=== PATIENT | male | born 1935 | race Caucasian/White ===

== ENCOUNTER 2016-11-25 11:57 | Inpatient (IN) | payer OTHER, MEDICARE ==
[~2016-11-25] VITALS: Ht 180.3 cm; Wt 95.3 kg
[~2016-11-25 11:57] MED LIST: CIPROFLOXACIN500 M2 PO
--- NOTE | 2016-11-25 12:10 | ED AMS/SEIZURE/WEAK/DIZZY ---
History of Present Illness General Chief Complaint: General Adult Stated Complaint: UTI, CONFUSSION Source: patient, family, old records Exam Limitations: no limitations Vital Signs & Intake/Output Vital Signs & Intake/Output Vital Signs Date Time Temp Pulse Resp B/P Pulse O2 O2 Flow FiO2 Ox Delivery Rate 11/26 0613 90 18 146/72 97 Room Air 11/25 2226 97.5 78 20 130/70 98 Room Air 11/25 1805 98.0 72 16 140/70 96 Room Air 11/25 1627 97.7 77 15 130/66 97 Room Air Room Air 11/25 1426 96.8 70 18 116/76 96 Room Air 11/25 1224 96 ED Intake and Output 11/26 0000 11/25 1200 Intake Total 2200 Output Total 1150 Balance 1050 Intake, IV 1500 Intake, Oral 700 Output, Urine 1150 Patient 210 lb Weight Allergies Coded Allergies: No Known Allergies (11/25/16) Reconcile Medications Amlodipine Besylate 10 MG TABLET 1 TAB PO DAILY HTN (Reported) Atorvastatin Calcium 80 MG TABLET 1 TAB PO DAILY HPL (Reported) Ciprofloxacin HCl 500 MG TABLET 1 TAB PO BID ?UTI (Reported) Esomeprazole (Nexium) (Unknown Strength) CAPSULE.DR (Unknown Dose) DAILY GI ( Reported) Ezetimibe (Zetia) 10 MG TABLET 1 TAB PO DAILY HPL (Reported) Metoprolol Tartrate 25 MG TABLET 1 TAB PO BID HTN (Reported) Quinapril HCl 10 MG TABLET 1 TAB PO DAILY HTN (Reported) Sertraline HCl 50 MG TABLET 1 TAB PO DAILY MENTAL HEALTH (Reported) Triage Note: TRIAGE: PT TO ER WITH C/C PENIS PAIN, EQUILIBRIUM PROBLEMS, CONSTANT HEADACHE & WEAKNESS. ONSET ?5 DAYS, GRADUAL IN ONSET. FELL X 1 LAST NIGHT. FELT LIGHTHEADED PRIOR TO FALL. STILL FEELS LIGHTHEADED. -LOC. DENIES INJURY FROM FALL. Triage Nurses Notes Reviewed? yes Onset: Gradual Duration: day(s): (5), constant Timing: recent history Injury Environment: home Severity: mild, moderate Severity Numbers: 7 No Modifying Factors: none Associated Symptoms: denies HPI: 81 year old male history of hypertension high cholesterol presents emergency room complaining of a several week history of feeling lightheaded and off balance. He states that 6 weeks ago he had his metoprolol dose decreased to 50 mg which seemed to help however the symptoms were still present mildly. Patient states for the past 5 days he has had urinary urgency frequency however with decreased urinary stream. He denies history of similar episodes in the past. The patient's bought [id number] medication and attempt to help with no relief. He has an appointment scheduled to see a urologist Dr. birmingham in [place] tomorrow. The patient had a prescription for Cipro called in 2 DAYS when He began at that time. According to his the patient has been more confused and unsteady on his feet however since the symptoms began. The patient admits to falling yesterday while getting out of bed. There is no head strike there is no loss of consciousness he denies headache patient's symptoms chest pain" abdominal pain shortness of breath cough fever or chill. There's been no change in his appetite (BECKY MOSES) Past History Travel History Traveled to [place] past 21 day No Medical History Any Pertinent Medical History? 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 No (BECKY MOSES) Review of Systems Review of Systems Constitutional: Reports: see HPI. All Other Systems: Reviewed and Negative Comments Review of systems: See HPI, All other systems negative. Constitutional, no chills fever or weight loss HEENT: No visual changes no sore throat no congestion Cardiovascular: No chest pain ,palpitation Skin, no jaundice no rashes Respiratory: No dyspnea cough sputum or hemoptysis GI: No nausea no vomiting : No dysuria No hematuria Muscle skeletal: no back pain, no neck pain, Neurologic: No numbness confusion Psych: No stress Heme/endocrine: No bruising no bleeding no polyuria or polydipsia Immunology: No splenectomy (BECKY MOSES) Physical Exam Physical Exam General Appearance: well developed/nourished, alert, awake Comments: Well-developed well-nourished person in no acute distress HEENT: Normal EENT exam; PERRL, EOMI, no nystagmus. HEAD is atraumatic. moist mucous membranes. Neck: Supple, normal range of motion Back: Nontender, no CVA tenderness. Full range of motion Cardiovascular: Regular rate and rhythms no murmurs rubs or gallops Respiratory: No respiratory distress. Patient speaking in full complete sentences. Breath sounds clear to auscultation bilaterally: NO W/R/R Abdomen: Soft, nontender nondistended, no appreciable organomegaly. Normal bowel sounds. No rebound/guarding, Extremity: No edema, full range of motion of extremities, 5 out of 5 strength noted to bilateral upper and lower extremities Neuro: Alert oriented x3, motor sensory normal, cranial nerves II through XII grossly intact. There were no obvious focal neurologic abnormalities. Skin: No appreciable rash on exposed skin, skin is warm and dry. Psych: Mood and affect is normal, memory and judgment is normal. Core Measures ACS in differential dx? Yes CVA/TIA Diagnosis: No Severe Sepsis Present: No Septic Shock Present: No (KRAIG PRADO,BECKY) Progress Differential Diagnosis: arrythmia, anemia, benign positional vertigo, CVA/stroke , dehydration, electrolyte imbalance, GI bleed, hypoglycemia, intracranial Hem., intracranial mass/tumor, labrynthitis, subarachnoid Hem., UTI/pyelo, vertebrobasilar insuff Plan of Care: Orders Procedure Date/time Status Heart Healthy Diet 11/26 B Active Change service to 11/26 0934 Active BASIC ELECTROLYTES PLUS BUN&CR 11/26 0600 Complete PT Evaluate & Treat 11/26 UNK Active Therapeutic Activities 11/26 UNK Complete PT EVAL LOW COMPLEX 20 MIN 11/26 UNK Complete Gait Training 11/26 UNK Complete MISTAKE 11/26 UNK Active MISSING MEDICATION FORM 11/26 UNK Active Regular Diet 11/25 D Complete Vital Signs 11/25 1815 Active Teach/Educate 11/25 181 Active Pain Treatment and Response 11/25 181 Active Nutritional Intake, Monitor 11/25 181 Active Isolation 11/25 181 Active Intake & Output 11/25 181 Active Patient Care Conference 11/25 181 Active Activity/Ambulation 11/25 181 Active Pathway - chart 11/25 1651 Active Admit to inpatient 11/25 1529 Active Vital Signs 11/25 1529 Active Code Status 11/25 1529 Active Patient Data 11/25 1525 Active BLOOD CULTURE 11/25 1512 Active Intake & Output 11/25 1326 Active EKG 11/25 1250 Active MISTAKE 11/25 1247 Active TROPONIN LEVEL 11/25 1237 Complete COMPREHENSIVE METABOLIC PANEL 11/25 1237 Complete CBC WITHOUT DIFFERENTIAL 11/25 1237 Complete House Staff 11/25 UNK Active VTE Mechanical Prophylaxis 11/25 UNK Active Current Medications Sig/Karuna Start time Last Medication Dose Stop Time Status Admin Ceftriaxone Sodium 1,000 MG DAILY@1600 11/26 1600 AC (Rocephin) Amlodipine Besylate 10 MG DAILY 11/26 1000 AC (Norvasc) Metoprolol Tartrate 25 MG BID 11/25 2200 CAN (Lopressor) Laboratory Tests 11/26/16 0620: Anion Gap 8, Estimated GFR > 60, BUN/Creatinine Ratio 15.6 11/25/16 1412: Urinalysis LIGHT H, Urine Color YEL, Urine Clarity HAZY H, Urine pH 6.0, Ur Specific [place] 1.010, Urine Protein NEG, Urine Ketones NEG, Urine Nitrite NEG, Urine Bilirubin NEG, Urine Urobilinogen 0.2, Ur Leukocyte Esterase MOD H, Ur Microscopic SEDIMENT EXAMINED, Urine RBC 1-3, Urine WBC 25-50 H, Ur Epithelial Cells FEW, Urine Bacteria FEW H, Granular Casts 1-3 H, Urine Mucus FEW, Urine Hemoglobin TRACE-INTACT H, Urine Glucose NEG 11/25/16 1320: Anion Gap 12, Estimated GFR 49 L, BUN/Creatinine Ratio 16.4, Glucose 114 H, Calcium 9.0, Total Bilirubin 1.0, AST 30, ALT 32, Alkaline Phosphatase 59, Troponin I < 0.01, Total Protein 6.7, Albumin 3.6, Globulin 3.1, Albumin/ Globulin Ratio 1.2, CBC w Diff NO MAN DIFF REQ, RBC 5.26, MCV 87.1, MCH 28.9, RDW 12.8, MPV 9.4, Gran % 62.9, Lymphocytes % 18.9 L, Monocytes % 15.4 H, Eosinophils % 2.0, Basophils % 0.8, Absolute Granulocytes 6.2, Absolute Lymphocytes 1.9, Absolute Monocytes 1.5 H, Absolute Eosinophils 0.2, Absolute Basophils 0.1, PUBS MCHC 33.2 Microbiology 11/25 1537 BLOOD: Blood Culture - RES 11/25 1528 BLOOD: Blood Culture - RES 11/25 1412 URINE ROUT: Urine Culture - RES Labs ordered old records reviewed orthostatics negative case discussed with Dr. beasley Discussed with the patient his family all his lab results CAT scan findings given recent fall change in mental status urinary tract infection probably premature distractedly medically harmful he's been on Cipro for the past 2 days without improvement they feel comfortable with this plan and admission CASE D/W DR DALEY RENAL US ORDERED FOR TOMORROW MONRNING PER DR DALEY US NOT AVAILABLE AT THIS TIME (KRAIG PRADO,BECKY) Diagnostic Imaging: Viewed by Me: CT Scan. Discussed w/RAD: CT Scan. Radiology Impression: PATIENT: YING BEAUCHAMP PRESENT AGE: 81 PATIENT ACCOUNT NO: [id number] : 35 LOCATION: [facility] ORDERING PHYSICIAN: BECKY PRADO SERVICE DATE: 11/25/16 EXAM TYPE: CAT - CT HEAD WO IV CONTRAST EXAMINATION: CT HEAD WITHOUT CONTRAST CLINICAL INFORMATION: Confusion, unsteady gait and urinary frequency. COMPARISON: None. TECHNIQUE: Contiguous axial imaging was performed from the skull base to vertex without intravenous administration of contrast. DLP: 600.71 mGy-cm FINDINGS: There is no evidence of acute intracranial hemorrhage or territorial infarction. No abnormal mass effect or midline shift is seen. [place] to white matter differentiation is well preserved. No extra-axial fluid collections are identified. The ventricles are normal in size. There is mild generalized sulcal widening. There is mild patchy low attenuation in the periventricular white matter spaces. The osseous structures and soft tissues are normal. Anterior dermal calcifications are incidentally noted, which can be correlated clinically. The mastoid air cells and visualized portions of the paranasal sinuses are well aerated. IMPRESSION: 1. No acute intracranial pathology. 2. There is mild cortical atrophy, commensurate with advanced age. 3. There is mild patchy low attenuation change in the periventricular white matter spaces, commonly associated with chronic microangiopathy. DICTATED BY: AKOSUA AMARAL MD DATE/TIME DICTATED:11/25/161329 DIRECTOR OF EMPLOYER SERVICES:HALLIE DATE/TIME TRANSCRIBED:11/25/161329 CONFIDENTIAL, DO NOT COPY WITHOUT APPROPRIATE AUTHORIZATION. <Electronically signed in Other Vendor System> SIGNED BY: AKOSUA AMARAL MD 03/12/17 1337 Initial ED EKG: normal sinus at 70, first-degree AV block PAC, no acute ST segment changes Rhythm Strip: normal sinus rhythm (BECKY OMSES) Departure Departure Time of Disposition: 1512 Disposition: STILL A PATIENT Condition: Stable Clinical Impression Primary Impression: UTI (urinary tract infection) Secondary Impressions: Unsteady gait, Weakness Referrals: VARGAS LOPEZ,SADE Villagran (PCP/Family) Departure Forms: Customer Survey General Discharge Information Admission Note Spoke With: EDI LOPEZ,ZORAIDA Documentation of Exam: Documentation of any treatments & extenuating circumstances including Concerns Regarding Discharge (functional status, medication knowledge or non-compliance, living conditions, etc.) that warrant an admission rather than observation: Patient not at baseline require IV antibiotics trend labs and cultures, he is a fall risk given weakness and recent fall premature discharge would BE medically harmful (BECKY MOSES) PA/BLANKET WINDER OPERATOR Co-Sign Statement Statement: ED Attending supervision documentation- [X] I saw and evaluated the patient. I have also reviewed all the pertinent lab results and diagnostic results. I agree with the findings and the plan of care as documented in the PA's/BLANKET WINDER OPERATOR's documentation. [X] I have reviewed the ED Record and agree with the PA's/BLANKET WINDER OPERATOR's documentation. [] Additions or exceptions (if any) to the PAs/BLANKET WINDER OPERATOR's note and plan are summarized below: [] (CHUN LOPEZ,MARCIO)
[2016-11-25] MEDS ORDERED: QUINAPRIL HCL10 M1 PO (12:20)
[2016-11-25] MEDS ORDERED: ATORVASTATIN CA80 M1 PO (12:20)
[2016-11-25] MEDS ORDERED: METOPROLOL TART25 M1 PO (12:20)
[2016-11-25] MEDS ORDERED: SERTRALINE HCL50 MG PO (12:20)
[2016-11-25] MEDS ORDERED: NEXIUM20 M1 PO (12:21)
[2016-11-25] MEDS ORDERED: AMLODIPINE BESY10 M1 PO (12:21)
[2016-11-25] MEDS ORDERED: ZETIA10 M1 PO (12:21)
[2016-11-25 13:30] LABS: ABSOLUTE BASOPHIL COUNT 0.1 /CUMM (0.0-0.2); ABSOLUTE EOSINOPHIL COUNT 0.2 /CUMM (0.0-0.7); ABSOLUTE GRANULOCYTE CT 6.2 /CUMM (1.4-6.5); ABSOLUTE LYMPH COUNT 1.9 /CUMM (1.2-3.4); ABSOLUTE MONOCYTE COUNT 1.5 /CUMM (0.10-0.60); BASOPHIL % 0.8 % (0.0-2.0); GRANULOCYTE % 62.9 % (42.2-75.2); HEMATOCRIT 45.9 % (42-52); MEAN CORPUSCULAR HGB 28.9 PG (27.0-31.0); MEAN CORPUSCULAR HGB CONC 33.2 G/DL (33.0-37.0); MEAN CORPUSCULAR VOLUME 87.1 FL (80.0-94.0); MEAN PLATELET VOLUME 9.4 FL (7.4-10.4); PLATELET COUNT 141 /CUMM (130-400); RBC DISTRIBUTION WIDTH 12.8 % (11.5-14.5); RED BLOOD CELL CT 5.26 /CUMM (4.70-6.10); WHITE BLOOD CELL COUNT 9.8 /CUMM (4.8-10.8)
--- NOTE | 2016-11-25 13:37 | CT SCAN REPORT ---
EXAMINATION: CT HEAD WITHOUT CONTRAST CLINICAL INFORMATION: Confusion, unsteady gait and urinary frequency. COMPARISON: None. TECHNIQUE: Contiguous axial imaging was performed from the skull base to vertex without intravenous administration of contrast. DLP: 600.71 mGy-cm FINDINGS: There is no evidence of acute intracranial hemorrhage or territorial infarction. No abnormal mass effect or midline shift is seen. [place] to white matter differentiation is well preserved. No extra-axial fluid collections are identified. The ventricles are normal in size. There is mild generalized sulcal widening. There is mild patchy low attenuation in the periventricular white matter spaces. The osseous structures and soft tissues are normal. Anterior dermal calcifications are incidentally noted, which can be correlated clinically. The mastoid air cells and visualized portions of the paranasal sinuses are well aerated. IMPRESSION: 1. No acute intracranial pathology. 2. There is mild cortical atrophy, commensurate with advanced age. 3. There is mild patchy low attenuation change in the periventricular white matter spaces, commonly associated with chronic microangiopathy.
[2016-11-25 18:05] VITALS: BP 140/70
--- NOTE | 2016-11-25 18:20 | History & Physical ---
See Addendum WILLIAM LOPEZ,DUKE 11/25/16 7881: General Information and HPI MD Statement: I have seen and personally examined YING BEAUCHAMP and documented this H&P. The patient is a 81 year old M who presented with a patient stated chief complaint of [increased lightheadedness, confusion]. Source of Information: patient, EMS Exam Limitations: no limitations History of Present Illness: Patient is a 81 YO M with PMH significant for HTN, HLD, CABG - 3 vessel (follows ), Acid reflux, Basal cell carcinoma came to the ER secondary to increased weakness, confusion and lethargy after having a UTI. Patient had lightheadedness since around a year on and off for which his metoprolol 37.5BID is changed to 25mg BID recently. After this he felt symptomatically better. He follows (urologist) for regular testosterone injections and PSA level checks. For the past 5days he had incrased urinary frequency, urgency, dysuria, decrased stream, fever, chills for which he made a call to office. He was started on Ciprofloxacin for presumed UTI. His symptoms started to improve, however he had increased urination, dehydration, frequency resulting in increased confusion, weakness. He came to ER for further evaluation. He had a fall yesterday which was uneventful, without any obvious injuries/head trauma. Patient never had UTI in the past, denies any history of prostate problems in the past denies any nausea, vomiting, diarrhea, bowel abnormalities. No blood in stools/ urine. started to notice orange urine after starting azel OTC. Allergies/Medications Allergies: Coded Allergies: No Known Allergies (11/25/16) Home Med list Amlodipine Besylate 10 MG TABLET 1 TAB PO DAILY HTN (Reported) Atorvastatin Calcium 80 MG TABLET 1 TAB PO DAILY HPL (Reported) Ciprofloxacin HCl 500 MG TABLET 1 TAB PO BID ?UTI (Reported) Esomeprazole (Nexium) (Unknown Strength) CAPSULE. (Unknown Dose) DAILY GI ( Reported) Ezetimibe (Zetia) 10 MG TABLET 1 TAB PO DAILY HPL (Reported) Metoprolol Tartrate 25 MG TABLET 1 TAB PO BID HTN (Reported) Quinapril HCl 10 MG TABLET 1 TAB PO DAILY HTN (Reported) Sertraline HCl 50 MG TABLET 1 TAB PO DAILY MENTAL HEALTH (Reported) Compliance With Home Meds: GOOD Past History Travel History Traveled to [place] past 21 day No Medical History Neurological: NONE EENT: NONE Cardiovascular: hypertension, hyperlipidemia, CABG - 3 vessel Respiratory: NONE Gastrointestinal: ACID REFLUX Hepatic: NONE Renal: NONE Musculoskeletal: NONE Psychiatric: NONE Endocrine: NONE Blood Disorders: NONE Cancer(s): NONE 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 Home Who Do You Live With? spouse Services at Home: None Smoking Status: Former Smoker ETOH Use: occasional use Illicit Drug Use: denies illicit drug use Living Will? yes Functional Ability ADLs Independent: dressing, eating, toileting, bathing. Ambulation: independent IADLs Independent: shopping, housework, finances, food prep, telephone, transportation , medication admin. Review of Systems Review of Systems Constitutional: Reports: see HPI. EENTM: Reports: see HPI. Cardiovascular: Reports: see HPI. Genitourinary: Reports: discharge, frequency, hesitation, urgency. Comments ROS negative except the above. Exam & Diagnostic Data Last 24 Hrs of Vital Signs/I&O Vital Signs Date Time Temp Pulse Resp B/P Pulse O2 O2 Flow FiO2 Ox Delivery Rate 11/25 1627 97.7 77 15 130/66 97 Room Air Room Air 11/25 1426 96.8 70 18 116/76 96 Room Air 11/25 1224 96 11/25 1204 96.6 74 20 128/78 96 Room Air Intake & Output 11/25 1600 11/25 0800 11/25 0000 Intake Total 1000 Output Total Balance 1000 Intake, IV 1000 Intake, Oral 0 Patient 95.254 kg Weight Physical Exam General Appearance Alert, Oriented X3, Cooperative Skin No Rashes, No Breakdown HEENT Atraumatic, PERRLA, EOMI Neck Supple Cardiovascular Regular Rate, Normal S1, Normal S2, No Murmurs Lungs Clear to Auscultation, Normal Air Movement Abdomen Normal Bowel Sounds, Soft, No Tenderness Neurological Normal Speech, Strength at 5/5 X4 Ext, Normal Tone, Sensation Intact Extremities No Clubbing, No Cyanosis Last 24 Hrs of Labs/Wes: Laboratory Tests 11/25/16 1412: Urinalysis LIGHT H, Urine Color YEL, Urine Clarity HAZY H, Urine pH 6.0, Ur Specific [place] 1.010, Urine Protein NEG, Urine Ketones NEG, Urine Nitrite NEG, Urine Bilirubin NEG, Urine Urobilinogen 0.2, Ur Leukocyte Esterase MOD H, Ur Microscopic SEDIMENT EXAMINED, Urine RBC 1-3, Urine WBC 25-50 H, Ur Epithelial Cells FEW, Urine Bacteria FEW H, Granular Casts 1-3 H, Urine Mucus FEW, Urine Hemoglobin TRACE-INTACT H, Urine Glucose NEG 11/25/16 1320: Anion Gap 12, Estimated GFR 49 L, BUN/Creatinine Ratio 16.4, Glucose 114 H, Calcium 9.0, Total Bilirubin 1.0, AST 30, ALT 32, Alkaline Phosphatase 59, Troponin I < 0.01, Total Protein 6.7, Albumin 3.6, Globulin 3.1, Albumin/ Globulin Ratio 1.2, CBC w Diff NO MAN DIFF REQ, RBC 5.26, MCV 87.1, MCH 28.9, RDW 12.8, MPV 9.4, Gran % 62.9, Lymphocytes % 18.9 L, Monocytes % 15.4 H, Eosinophils % 2.0, Basophils % 0.8, Absolute Granulocytes 6.2, Absolute Lymphocytes 1.9, Absolute Monocytes 1.5 H, Absolute Eosinophils 0.2, Absolute Basophils 0.1, PUBS MCHC 33.2 Microbiology 11/25 1537 BLOOD: Blood Culture - RECD 11/25 1528 BLOOD: Blood Culture - RECD 11/25 1412 URINE ROUT: Urine Culture - RECD Assessment/Plan Assessment: Patient is a 81 YO M with PMH significant for HTN, HLD, CABG - 3 vessel (follows ), Acid reflux, Basal cell carcinoma came to the ER secondary to increased weakness, confusion and lethargy after having a presumed UTI. He was scheduled for any appointement with tomorrow. ER Course VS Afebrile, on room air Significant labs Cr. 1.4 with normal white count UA is hazy, LE positive, white count 25-50, few bacteria, granular casts. Plan Admitted to general medicine floor UTI leading to dehydration and kidney injury * started on IV ceftriaxone 1gm daily with discontinuation of cipro for now * f/u urine and blood culture * usg kidney to rule out post renal causes. * Gentle hydration with IVF * Rectal examination reveals prostate enalrgement FARAZ * Cr 1.4 * gentle hydration with IVF * repeat BEP daily Orthostatic hypotension * Increased urination and increased abdominal pressure leading to increased lightheadedness * orthostatic vitals History of hypertension * amlodipine 10mg and metoprolol 25mg BID at home Hyperlipidemia * on atorvaststin 80mg & ezetimibe 10mg at home- we will continue that History of Depression * on sertraline 50mg at home DVT prophylaxis * SC heparin Code status * Full Code As Ranked By This Provider Problem List: 1. UTI (urinary tract infection) 2. Unsteady gait 3. Weakness Core Measures/Miscellaneous Acute Coronary Syndrome ACS Diagnosis: No Cerebrovascular Accident CVA/TIA Diagnosis: No Congestive Heart Failure CHF Diagnosis: No Venous Thromboembolism VTE Risk Factors: Immobility, paresis No Mech VTE prophylaxis d/t: No contraindications No VTE Pharm Prophylaxis d/t: No contraindications VTE Diagnosis: No VTE Type: NONE VTE Confirmed by (Test): NONE Severe Sepsis Severe Sepsis Present: No Septic Shock Septic Shock Present: No Miscellaneous Documentation Attending Case Discussed With: EDI LOPEZ,[facility] Primary Care Physician: SADE KAYE MD Patient sees these Specialists Level of Patient Care: General Medicine MERRITT INTERIANO MD 11/25/162022: Resident Review Statement Resident Statement: examined this patient, discussed with internal revenue agent, agreed with internal revenue agent, discussed with family, reviewed EMR data (avail) Other Findings: 81 YO M with PMH of CAD S/P CABG, low testosterone, basal cell carcinoma, HTN, HLD who presents with symptoms of urinary urgency, frequency, penile pain, dysuria x 5 days and profound weakness and lightheadedness x 1 year which improved with decrease in the dose of his PO metoprolol from 75mg daily to 50mg daily. No prior history of urinay complaints, no hx of BPH. he sees a urologist for testosterone shots and got a MOH's surgey for BCC on his rt forehead. Reports chills and mailase but denies any N/V/D, fever or abd/pelvic pain. Started Po ciprofloxacin 2 days ago prescribed by his PCP's office without much improvement. Also used OTC Azo without relief either. Deneies any history of renal disease. Pertinent Exam; Abd. mildly distended but not tender, Mild-moderately enlarged prostate, guaic neg Ass Urinary Tract Infection FARAZ Plan Admit to GM Urine cx and Blood cx x 2 Start IV ceftriaxone 1g daily Obtain Ultrasound of the kidney, ureter and bladder to r/o obstruction/ hydronephrosis/mass Tylenol for pain IVF NS for rehydration Resume important home meds Obtain records and labs from urologist Repeat labs in am SC heparin for DVT ppx
--- NOTE | 2016-11-25 18:26 | Admission Certification ---
Admission Certification Certification Statement - As attending physician, I certify that at the time of - admission, based on clinical presentation, severity of - symptoms, need for further diagnostic testing and - therapeutic interventions, and risk of adverse outcomes - without in-hospital treatment, in my clinical assessment, - this patient requires an acute hospital stay for a minimum - of two nights or longer. I have also considered psychsocial - factors such as support system, advanced age, financial - issues, cognitive issues, and failed out-patient treatments, - past re-admission history, safety of patient, and lack of - compliance as applicable. Specific rationale supporting this admission is: UTI, failed outpatient therapy
--- NOTE | 2016-11-25 18:31 | PN- Att Addend ---
Attending Addendum Attending Brief Note Patient seen and examined. Plan of care discussed with the medical team and the patient. Available lab work and radiology test reports were reviewed. This is a 81 Elderly male with history of hypertension hyperlipidemia CAD and CABG presents with about 1 week history of dysuria without any fever or chills who has human suggestive of UTI. Patient was recently started on Cipro on Saturday and has taken 5 pills so far without much relief patient has been feeling weak and somewhat confused as per family. Needs workup for stone or obstruction or BPH. Patient apparently sees his urologist for test to steroid shots. His does not recall any issues with his prostate or kidney disease or kidney stones. Please see resident note for past history allergies medication family history social history. Vital Signs Date Time Temp Pulse Resp B/P Pulse O2 O2 Flow FiO2 Ox Delivery Rate 11/25 1627 97.7 77 15 130/66 97 Room Air Room Air 11/25 1426 96.8 70 18 116/76 96 Room Air 11/25 1224 96 11/25 1204 96.6 74 20 128/78 96 Room Air Intake & Output 11/25 1600 11/25 0800 11/25 0000 Intake Total 1000 Output Total Balance 1000 Intake, IV 1000 Intake, Oral 0 Patient 210 lb Weight Exam: General: Patient awake alert oriented without any distress CVS: S1 plus S2 without any murmur or gallops Chest: Few scattered crepitation without any wheeze. There is no respiratory distress. Abdomen: Soft nontender, bowel sound present, no guarding or rebound; ? Bladder distention GEODETIC SURVEYOR TECHNOLOGIST: Awake alert oriented without any focal neuro deficit and follows command appropriately Extremities: No edema; no clubbing or cyanosis noted Laboratory Tests 11/25 11/25 1412 1320 Chemistry Sodium (137 - 145 mmol/L) 139 Potassium (3.5 - 5.1 mmol/L) 3.9 Chloride (98 - 107 mmol/L) 100 Carbon Dioxide (22 - 30 mmol/L) 27 Anion Gap (5 - 16) 12 BUN (9 - 20 mg/dL) 23 H Creatinine (0.7 - 1.2 mg/dL) 1.4 H Estimated GFR (>60 ml/min) 49 L BUN/Creatinine Ratio (7 - 25 %) 16.4 Glucose (65 - 99 mg/dL) 114 H Calcium (8.4 - 10.2 mg/dL) 9.0 Total Bilirubin (0.2 - 1.3 mg/dL) 1.0 AST (17 - 59 U/L) 30 ALT (21 - 72 U/L) 32 Alkaline Phosphatase (< 127 U/L) 59 Troponin I (<0.11 ng/ml) < 0.01 Total Protein (6.3 - 8.2 g/dL) 6.7 Albumin (3.5 - 5.0 g/dL) 3.6 Globulin (1.9 - 4.2 gm/dL) 3.1 Albumin/Globulin Ratio (1.1 - 2.2 %) 1.2 Hematology CBC w Diff NO MAN DIFF REQ WBC (4.8 - 10.8 /CUMM) 9.8 RBC (4.70 - 6.10 /CUMM) 5.26 Hgb (14.0 - 18.0 G/DL) 15.2 Hct (42 - 52 %) 45.9 MCV (80.0 - 94.0 FL) 87.1 MCH (27.0 - 31.0 PG) 28.9 RDW (11.5 - 14.5 %) 12.8 Plt Count (130 - 400 /CUMM) 141 MPV (7.4 - 10.4 FL) 9.4 Gran % (42.2 - 75.2 %) 62.9 Lymphocytes % (20.5 - 51.1 %) 18.9 L Monocytes % (1.7 - 9.3 %) 15.4 H Eosinophils % (0 - 5 %) 2.0 Basophils % (0.0 - 2.0 %) 0.8 Absolute Granulocytes (1.4 - 6.5 /CUMM) 6.2 Absolute Lymphocytes (1.2 - 3.4 /CUMM) 1.9 Absolute Monocytes (0.10 - 0.60 /CUMM) 1.5 H Absolute Eosinophils (0.0 - 0.7 /CUMM) 0.2 Absolute Basophils (0.0 - 0.2 /CUMM) 0.1 PUBS MCHC (33.0 - 37.0 G/DL) 33.2 Urines Urinalysis LIGHT H Urine Color (YEL,AMB,STR) YEL Urine Clarity (CLEAR) HAZY H Urine pH (5.0 - 8.0) 6.0 Ur Specific [place] (1.001 - 1.035) 1.010 Urine Protein (NEG,<30 MG/DL) NEG Urine Ketones (NEG) NEG Urine Nitrite (NEG) NEG Urine Bilirubin (NEG) NEG Urine Urobilinogen (0.1 - 1.0 EU/dl) 0.2 Ur Leukocyte Esterase (NEG) MOD H Ur Microscopic SEDIMENT EXAMINED Urine RBC (0 - 5 /HPF) 1-3 Urine WBC (0 - 2 /HPF) 25-50 H Ur Epithelial Cells (NONE,FEW) FEW Urine Bacteria (NEG/NONE) FEW H Granular Casts (NONE /LPF) 1-3 H Urine Mucus (FEW,NONE) FEW Urine Hemoglobin (NEG) TRACE-INTACT H Urine Glucose (N MG/DL) NEG Microbiology Date/Time Procedure - Status Source Growth 11/25 1537 Blood Culture - RECD BLOOD 11/25 1528 Blood Culture - RECD BLOOD 11/25 1412 Urine Culture - RECD URINE ROUT Assessment * UTI without signs of sepsis * History of hypertension * Hyperlipidemia * Renal failure unclear whether this is acute or chronic * Hyperglycemia Plan * Start ceftriaxone 1 g daily * Follow-up urine culture which showed he has been sent * Obtain ultrasound of kidney ureter bladder to rule out any obstruction or stones or foreign bodies * Continue home medications except for Cipro
[2016-11-25 22:26] VITALS: BP 130/70
--- NOTE | 2016-11-26 06:01 | PN- Housestaff ---
WILLIAM LOPEZ,[place] 11/26/16 0600: Subjective Follow-up For: UTI Orthostatic hypotension BPH Subjective: I saw and examined the patient today morning He is doing much better, denies any lightheadedness so far, didnt try to walk. Still had urgency, frequency dysuria. Denies any decreased stream as of now. Review of Systems Constitutional: Reports: see HPI, malaise, weakness. EENTM: Reports: see HPI. Comments: ROS negative except the above. Objective Last 24 Hrs of Vital Signs/I&O Vital Signs Date Time Temp Pulse Resp B/P Pulse O2 O2 Flow FiO2 Ox Delivery Rate 11/25 2226 97.5 78 20 130/70 98 Room Air 11/25 1805 98.0 72 16 140/70 96 Room Air 11/25 1627 97.7 77 15 130/66 97 Room Air Room Air 11/25 1426 96.8 70 18 116/76 96 Room Air 11/25 1224 96 11/25 1204 96.6 74 20 128/78 96 Room Air Intake & Output 11/26 0800 11/26 0000 11/25 1600 Intake Total 1200 1000 Output Total 1150 Balance 50 1000 Intake, IV 500 1000 Intake, Oral 700 0 Output, Urine 1150 Patient 95.254 kg 95.254 kg Weight Physical Exam General Appearance: Alert, Oriented X3, Cooperative Skin: No Rashes, No Breakdown HEENT: Atraumatic, PERRLA, EOMI Neck: Supple, No JVD Cardiovascular: Regular Rate, Normal S1, Normal S2, No Murmurs Lungs: Clear to Auscultation, Normal Air Movement Abdomen: Normal Bowel Sounds, Soft, No Tenderness Neurological: Strength at 5/5 X4 Ext, Normal Tone, Sensation Intact, Cranial Nerves 3-12 NL Extremities: No Clubbing, No Cyanosis Vascular: Normal Pulses, Pulses Symmetrical Current Medications: Current Medications Sig/Karuna Start time Last Medication Dose Route Stop Time Status Admin Acetaminophen 650 MG Q6P PRN 11/25 1700 AC 11/26 PO 0558 Amlodipine Besylate 10 MG DAILY 11/26 1000 AC PO Atorvastatin Calcium 80 MG DAILY 11/26 1000 AC PO Ceftriaxone Sodium 1,000 MG DAILY@1600 11/26 1600 AC IV Ceftriaxone Sodium 0 .STK-MED ONE 11/25 1551 DC .ROUTE Ceftriaxone Sodium 1,000 MG ONCE ONE 03/12 1515 DC 11/25 IV 11/25 1516 1607 Ezetimibe 10 MG DAILY 11/26 1000 AC PO Heparin Sodium 0 .STK-MED ONE 11/25 1734 DC (Porcine) .ROUTE Heparin Sodium 5,000 UNIT Q8 11/25 1650 AC 11/26 (Porcine) SC 0552 Metoprolol Tartrate 25 MG BID 11/25 2200 CAN PO Omeprazole 20 MG DAILY AC 11/26 0700 AC 11/26 PO 0552 Patient Medication 1 UNIT ONE NR 11/25 1815 DC Teaching ED 11/25 1830 Patient Medication 1 UNIT ONE NR 11/25 1815 DC Teaching ED 11/25 1830 Patient Medication 1 UNIT ONE NR 11/25 1815 DC Teaching ED 11/25 1830 Patient Medication 1 UNIT ONE NR 11/25 1745 DC Teaching ED 11/25 1800 Ramelteon 8 MG AT BEDTIME 11/25 2200 AC 11/25 PO 2136 Sertraline HCl 50 MG DAILY 11/26 1000 AC PO Sodium Chloride 1,000 ML Q10H 11/25 1800 AC 11/26 IV 0600 Sodium Chloride 1,000 ML BOLUS ONE 11/25 1415 DC 11/25 IV 11/25 1514 1414 Sodium Chloride 1,000 ML BOLUS ONE 11/25 1300 DC 11/25 IV 11/25 1359 1324 Last 24 Hrs of Lab/Wes Results Last 24 Hrs of Labs/Mics: Laboratory Tests 11/26/16 0620: Anion Gap 8, Estimated GFR > 60, BUN/Creatinine Ratio 15.6 Lines/Diet/Fluids Lines: peripheral lines Assessment/Plan Assessment: Patient is a 81 YO M with PMH significant for HTN, HLD, CABG - 3 vessel (follows ), Acid reflux, Basal cell carcinoma came to the ER secondary to increased weakness, confusion and lethargy after having a presumed UTI. He was scheduled for any appointement with tomorrow. ER Course VS Afebrile, on room air Significant labs Cr. 1.4 with normal white count UA is hazy, LE positive, white count 25-50, few bacteria, granular casts. Plan Admitted to general medicine floor UTI leading to dehydration and kidney injury * started on IV ceftriaxone 1gm daily with discontinuation of cipro for now, will convert to oral antibiotics tomorrow. * f/u urine and blood culture * usg kidney shows a post voidal residual volume of 532 mL and prostate volume of 32ml. * Started on Tamsulosin 0.4mg daily, need to follow up with his urologist. * Rectal examination reveals prostate enalrgement FARAZ * Cr 1.4 at admission - back to baseline with fluids. Orthostatic hypotension * Increased urination and increased abdominal pressure leading to increased lightheadedness * orthostatic vitals positive * Hydrating, will repeat orthostatics tomorrow. History of hypertension * amlodipine 10mg and metoprolol 25mg BID at home Hyperlipidemia * on atorvaststin 80mg & ezetimibe 10mg at home- we will continue that History of Depression * on sertraline 50mg at home DVT prophylaxis * SC heparin Code status * Full Code Problem List: 1. UTI (urinary tract infection) 2. Weakness Pain Ratin Pain Location: n/a Pain Goal: Pain 4 or less Pain Plan: tylenol PRN Tomorrow's Labs & Rationales: NONE KENYETTA DICKEY MD 11/26/16 1448: Attending MD Review Statement Attending Statement Attending MD Statement: examined this patient, discuss w/resident/PA/CHOIR LEADER, agreed w/resident/PA/CHOIR LEADER, discussed with family, reviewed EMR data (avail), discussed with nursing, discussed with case mgmt, reviewed images, amended to note Attending Assessment/Plan: Patient seen and examined, feeling overall slightly better. Patient is a 81- year-old male who was admitted with the UTI failing outpatient treatment. Vital Signs Date Time Temp Pulse Resp B/P Pulse O2 O2 Flow FiO2 Ox Delivery Rate 11/26 1426 98.2 72 20 130/74 95 Room Air 11/26 0613 90 18 146/72 97 Room Air 11/25 2226 97.5 78 20 130/70 98 Room Air 11/25 1805 98.0 72 16 140/70 96 Room Air 11/25 1627 97.7 77 15 130/66 97 Room Air Room Air on exam; aox3, nad. cv; s1,s2, rrr resp; clear abd; soft, nt, bs+ ext; no edema. Laboratory Tests 11/26 0620 Chemistry Sodium (137 - 145 mmol/L) 138 Potassium (3.5 - 5.1 mmol/L) 4.0 Chloride (98 - 107 mmol/L) 105 Carbon Dioxide (22 - 30 mmol/L) 26 Anion Gap (5 - 16) 8 BUN (9 - 20 mg/dL) 14 Creatinine (0.7 - 1.2 mg/dL) 0.9 Estimated GFR (>60 ml/min) > 60 BUN/Creatinine Ratio (7 - 25 %) 15.6 A/P; Patient is a 81-year-old male who was admitted with the UTI failing outpatient treatment. Patient will be continued on IV ceftriaxone. Renal ultrasound does not show any evidence off hydronephrosis. We can stop the IV fluids. Imaging is consistent with urinary retention. We will start the patient on Flomax. He has an outpatient urologist that he can follow. Patient doesn't history of urinary hesitancy which she thinks that is slightly better after he has been started on antibiotics. Continue other current medications. DVT px: Heparin subcutaneous.
[2016-11-26 06:13] VITALS: BP 146/72
--- NOTE | 2016-11-26 11:07 | ULTRASOUND REPORT ---
EXAMINATION: US RETROPERITONEAL COMPLETE (RENAL) CLINICAL INFORMATION: Acute kidney injury, enlarged prostate, rule out obstruction/stones/hydronephrosis. COMPARISON: None TECHNIQUE: Real-time imaging of the kidneys and bladder. FINDINGS: RIGHT KIDNEY: 10.9 x 5.7 x 6.0 cm (SAG x AP x TRV). The kidney is normal in size, contour, and echogenicity. Renal cortical thickness is normal. No calculi are seen. There is an upper pole cyst measuring 4.3 x 4.3 x 4.2 cm. There is a mid renal cyst measuring 2.2 x 2.1 x 1.8 cm with a thin septation. No hydronephrosis. LEFT KIDNEY: 11.7 x 6.1 x 4.2 cm (SAG x AP x TRV). The kidney is normal in size, contour, and echogenicity. Renal cortical thickness is normal. No calculi are seen. There is a cyst in the upper pole measuring 2.9 x 2.7 x 2.6 cm. No hydronephrosis. BLADDER: No focal wall thickening is seen. Post void residual bladder volume measures 532 mL. Bilateral ureteral jets are demonstrated. Prostate measures approximately 4.5 x 3.4 x 4.0 cm, for a volume of 32 mL. IMPRESSION: 1. No hydronephrosis bilaterally. 2. Few bilateral renal cysts. 3. Postvoid residual bladder volume of 532 mL. 4. Estimated prostate volume of 32 mL.
[2016-11-26 14:26] VITALS: BP 130/74
[2016-11-26] MEDS ORDERED: FLOMAX0.4 M1 PO (21:14)
--- NOTE | 2016-11-26 21:15 | Patient Discharge Instructions ---
Discharge Instructions General Discharge Information You were seen/treated for: Urinary tract infection Orthostatic hypotension Watch for these problems: Fever or chills Nausea or vomiting Burning with urination Blood in your urine Pain in your abdomen or back Special Instructions: Please follow up with your PCP in aweek Please follow up with your Marine Engine Machinist Apprentice in a week Please follow up with your urologist - in a week Diet Continue normal diet: Yes Activity Full Activity/No Limits: Yes Activity Self Limited: Yes Acute Coronary Syndrome Inclusion Criteria At DC or during hospital stay patient has or had the following: ACS DIAGNOSIS No Discharge Core Measures Meds if any: Prescribed or Continued at Discharge Meds if any: NOT Prescribed or Continued at Discharge Congestive Heart Failure Inclusion Criteria At DC or during hospital stay patient has or had the following: CHF DIAGNOSIS No Discharge Core Measures Meds if any: Prescribed or Continued at Discharge Meds if any: NOT Prescribed or Continued at Discharge Cerebrovascular accident Inclusion Criteria At DC or during hospital stay patient has or had the following: CVA/TIA Diagnosis No Discharge Core Measures Meds if any: Prescribed or Continued at Discharge Meds if any: NOT Prescribed or Continued at Discharge Venous thromboembolism Inclusion Criteria VTE Diagnosis No VTE Type NONE VTE Confirmed by (Test) NONE Discharge Core Measures - Per Current guidelines, there needs to be overlap - treatment for the first 5 days of Warfarin therapy. - If discharged on Warfarin prior to 5 days of - overlap therapy, the patient will need to be - assessed for post discharge needs including - *Post discharge parental anticoagulation - *Warfarin and/or parental anticoagulation education - *Follow up date to check INR post discharge At least 5 days overlap therapy as Inpatient No Meds if any: Prescribed or Continued at Discharge Note: Overlap Therapy is Warfarin and Anticoagulant Meds if any: NOT Prescribed or Continued at Discharge
[2016-11-26 22:19] VITALS: BP 137/83
[2016-11-27 05:40] VITALS: BP 146/82
--- NOTE | 2016-11-27 06:53 | PN- Housestaff ---
BRYANT LOPEZ,[facility] [place] [facility] [place]/27/16 0653: Subjective Follow-up For: UTI Orthostatic hypotension Possible BPH Subjective: No acute events overnight. Patient seen and examined this morning. He feels well and has no complaints. Dizziness has improved. Review of Systems Constitutional: Reports: no symptoms. Objective Last 24 Hrs of Vital Signs/I&O Vital Signs Date Time Temp Pulse Resp B/P Pulse O2 O2 Flow FiO2 Ox Delivery Rate 11/27 1421 98.0 70 20 134/80 95 Room Air 11/27 1030 68 146/82 11/27 1029 68 146/82 11/27 0540 97.5 68 20 146/82 95 11/26 2223 80 137/83 11/26 2219 98.2 80 20 137/83 95 Room Air Intake & Output 11/27 1600 11/27 0800 11/27 0000 Intake Total 800 240 240 Output Total 300 250 Balance 500 -10 240 Intake, Oral 800 240 240 Output, Urine 300 250 Physical Exam General Appearance: Alert, Oriented X3, No Acute Distress HEENT: Mucous Membr. moist/pink Neck: Supple Cardiovascular: Regular Rate, Normal S1, Normal S2, No Murmurs, Gallops, Rubs Lungs: Clear to Auscultation Abdomen: Soft, No Tenderness, Positive Bowel Sounds Extremities: No Clubbing, No Cyanosis, No Edema Current Medications: Current Medications Sig/Karuna Start time Last Medication Dose Route Stop Time Status Admin Acetaminophen 650 MG Q6P PRN 11/25 1700 AC 11/26 PO 0558 Amlodipine Besylate 10 MG DAILY 11/26 1000 AC 11/27 PO 1030 Atorvastatin Calcium 80 MG DAILY 11/26 1000 AC 11/27 PO 1029 Ceftriaxone Sodium 1,000 MG DAILY@1600 11/26 1600 AC 11/27 IV 1557 Ezetimibe 10 MG DAILY 11/26 1000 AC 11/27 PO 1030 Heparin Sodium 5,000 UNIT Q8 11/25 1650 AC 11/27 (Porcine) SC 1424 Metoprolol Tartrate 25 MG BID 11/26 1000 AC 11/27 PO 1029 Omeprazole 20 MG DAILY AC 11/26 0700 AC 11/27 PO 0524 Polyethylene Glycol 17 GM DAILY 11/27 1026 AC 11/27 PO 1156 Ramelteon 8 MG AT BEDTIME 11/25 2200 AC 11/26 PO 2223 Sertraline HCl 50 MG DAILY 11/26 1000 AC 11/27 PO 1030 Tamsulosin HCl 0.4 MG DAILY 11/26 1416 AC 11/27 PO 1030 Last 24 Hrs of Lab/Wes Results Last 24 Hrs of Labs/Mics: BCx (11/25/16): NGTD x 2 UCx (11/25/16): NGTD Assessment/Plan Assessment: 81 y/o M with PMHx of HTN, HLD and CAD s/p CABG who is admitted for UTI after failing outpatient treatment. #UTI: On day 3 of ceftriaxone with significant clinical improvement. UCx negative likely 2/2 partial treatment with antibiotics. * Discontinue ceftriaxone. * Switch to oral antibiotics tomorrow, levofloxacin 750 mg PO daily as patient failed ciprofloxacin. Will discharge on levofloxacin to complete 7-day course of antibiotics for acute complicated cystitis in the setting of BPH. #Possible BPH: Renal US with postvoid residual bladder volume of 532 mL. No prior diagnosis of BPH. * Continue tamsulosin 0.4 mg PO daily. Added to discharge medications. * Follow up with outpatient urologist Dr. Parish for further workup. #Orthostatic hypotension: Resolved, repeat orthostatics negative yesterday. * NTD. Diet: Heart Healthy Diet DVT PPx: HSQ and ALPs CODE: FULL Problem List: 1. UTI (urinary tract infection) 2. Orthostatic hypotension Pain Ratin Pain Location: N/A Pain Goal: Remain pain free Pain Plan: Tylenol 650 mg PO Q6H Tomorrow's Labs & Rationales: None Discharge Plan Discharge Disposition: home Stable for Discharge? Yes Anticipated Discharge (Day): tomorrow MURIEL CRESPO MD 11/27/16 1040: Attending MD Review Statement Attending Statement Attending MD Statement: examined this patient, discuss w/resident/PA/POCKET CLOSER, agreed w/resident/PA/POCKET CLOSER, reviewed EMR data (avail) Attending Assessment/Plan: Patient doing well, on Ceftriaxone for UTI, FARAZ resolved, vitals stable, labs reviewed. Will likely be discharged tomorrow. Will continue current management and transition to PO antibiotics for UTI tomorrow.
[2016-11-27 14:21] VITALS: BP 134/80
[2016-11-27 22:28] VITALS: BP 140/80
[2016-11-28 06:16] VITALS: BP 140/89
--- NOTE | 2016-11-28 07:10 | PN- Housestaff ---
BRYANT LOPEZ,[place] 11/28/16 0710: Subjective Follow-up For: UTI Suspected BPH Orthostatic hypotension Subjective: No acute events overnight. Patient was seen and examined this morning. He feels good and has no complaints. Review of Systems Constitutional: Reports: no symptoms. Objective Last 24 Hrs of Vital Signs/I&O Vital Signs Date Time Temp Pulse Resp B/P Pulse O2 O2 Flow FiO2 Ox Delivery Rate 11/28 09 78 140/89 11/28 0926 78 140/89 11/28 0926 78 140/89 11/28 0616 97.8 78 20 140/89 95 Room Air 11/27 2229 78 140/80 11/27 2228 97.9 78 19 140/80 95 Intake & Output 11/28 1600 11/28 0800 11/28 0000 Intake Total 120 850 Output Total Balance 120 850 Intake, Oral 120 850 Physical Exam General Appearance: Alert, Oriented X3, No Acute Distress HEENT: Atraumatic, Mucous Membr. moist/pink Cardiovascular: Regular Rate, Normal S1, Normal S2, No Murmurs, Gallops, Rubs Lungs: Clear to Auscultation Abdomen: Soft, No Tenderness, Positive Bowel Sounds Extremities: No Clubbing, No Cyanosis, No Edema Current Medications: Current Medications Sig/Karuna Start time Last Medication Dose Route Stop Time Status Admin Acetaminophen 650 MG Q6P PRN 11/25 1700 DCD 11/26 PO 0558 Amlodipine Besylate 10 MG DAILY 11/26 1000 DCD 11/28 PO 0926 Atorvastatin Calcium 80 MG DAILY 11/26 1000 DCD 11/28 PO 0926 Cephalexin 250 MG Q6 11/28 1200 DCD PO Ezetimibe 10 MG DAILY 11/26 1000 DCD 11/28 PO 0926 Heparin Sodium 5,000 UNIT Q8 11/25 1650 DCD 11/28 (Porcine) SC 0622 Levofloxacin 750 MG 1600 11/28 1600 CAN PO Metoprolol Tartrate 25 MG BID 11/26 1000 DCD 11/28 PO 0926 Omeprazole 20 MG DAILY AC 11/26 0700 DCD 11/28 PO 0622 Patient Medication 1 ED .STK-MED ONE 11/28 1351 DC Teaching ED 11/28 1352 Polyethylene Glycol 17 GM DAILY 11/27 1026 DCD 11/27 PO 1156 Ramelteon 8 MG AT BEDTIME 11/25 2200 DCD 11/27 PO 2229 Sertraline HCl 50 MG DAILY 11/26 1000 DCD 11/28 PO 0926 Tamsulosin HCl 0.4 MG DAILY 11/26 1416 DCD 11/28 PO 0926 Assessment/Plan Assessment: 81 y/o M with PMHx of HTN, HLD and CAD s/p CABG who is admitted for UTI. #UTI: S/p 3 days of IV ceftriaxone with significant clinical improvement. UCx negative likely 2/2 partial treatment with antibiotics. * Discharge home today. Will take Keflex 500 mg PO Q6H for 2 more days after discharge to complete 7-day course of antibiotics for suspected acute complicated cystitis in the setting of BPH. #Suspected BPH: Renal US with postvoid residual bladder volume of 532 mL. No prior diagnosis of BPH. * Will continue tamsulosin 0.4 mg PO daily on discharge. * Follow up with outpatient urologist Dr. Parish next week for further workup. #Orthostatic hypotension: Resolved, repeat orthostatics negative. * Follow up with outpatient linen room worker Dr. Yan after discharge. Diet: Heart Healthy Diet DVT PPx: HSQ and ALPs CODE: FULL Problem List: 1. UTI (urinary tract infection) 2. Orthostatic hypotension 3. BPH (benign prostatic hyperplasia) Pain Ratin Pain Location: N/A Pain Goal: Remain pain free Pain Plan: Tylenol 650 mg PO Q6H Tomorrow's Labs & Rationales: None Discharge Plan Discharge Disposition: home Stable for Discharge? Yes Anticipated Discharge (Day): today KENYETTA DICKEY MD 11/28/16 1458: Attending MD Review Statement Attending Statement Attending MD Statement: examined this patient, discuss w/resident/PA/AUTOMOBILE CONTRACT CLERK, agreed w/resident/PA/AUTOMOBILE CONTRACT CLERK, discussed with family, reviewed EMR data (avail), discussed with nursing, discussed with case mgmt, amended to note Attending Assessment/Plan: Patient seen and examined, overall feeling much better. His enteritis has been switched to oral. Patient is medically stable for discharge today. We have added Flomax for urinary retention and he will follow-up with his urologist as an outpatient.
[2016-11-28 09:26] VITALS: BP 140/89
[2016-11-28] MEDS ORDERED: KEFLEX500 M1 PO (11:11)
--- NOTE | 2016-11-29 15:28 | Discharge Summary ---
Visit Information Visit Dates Admission Date: 11/25/16 Discharge Date: 11/28/16 Hospital Course Course Attending Physician: NOBLE LOPEZ,KENYETTA Primary Care Physician: VARGAS LOPEZ,SADE Villagran Hospital Course: Patient is a 81 YO M with PMH significant for HTN, HLD, CABG - 3 vessel (follows ), Acid reflux, Basal cell carcinoma came to the ER secondary to increased weakness, confusion and lethargy after having a presumed UTI. He was scheduled for any appointement with tomorrow. ER Course VS Afebrile, on room air Significant labs Cr. 1.4 with normal white count UA is hazy, LE positive, white count 25-50, few bacteria, granular casts. Plan Admitted to general medicine floor Acute complicated cystitis in the setting of BPH He was on ciprofloxacin (took 5doses) at the time of admission - prescribed by his urologist. He was started on IV ceftriaxone 1gm daily initially and then converted to oral cephlex 500mg Q6 at discharge for a total of 7day course. His cultures remained negative - as he was already on antibiotics. Bening Prostate hypertrophy His renal usg revelaed a post voidal residual volume of 532 mL and prostate volume of 32ml. Started on Tamsulosin 0.4mg daily, need to follow up with his urologist. Rectal examination reveals prostate enalrgement FARAZ Cr 1.4 at admission - back to baseline with fluids. Orthostatic hypotension Increased urination and increased abdominal pressure leading to increased lightheadedness. orthostatic vitals positive. Improved with Hydration. History of hypertension: His home medications including amlodipine 10mg and metoprolol 25mg BID are continued during his hospital course. Hyperlipidemia: His home medications atorvaststin 80mg & ezetimibe 10mg are continued. History of Depression: His home medication sertraline 50mg continued. DVT prophylaxis: SC heparin Code status: Full Code Complications: None Allergies: Coded Allergies: No Known Allergies (11/25/16) Significant Procedures: CT HEAD WITHOUT CONTRAST CLINICAL INFORMATION: Confusion, unsteady gait and urinary frequency. COMPARISON: None. TECHNIQUE: Contiguous axial imaging was performed from the skull base to vertex without intravenous administration of contrast. DLP: 600.71 mGy-cm FINDINGS: There is no evidence of acute intracranial hemorrhage or territorial infarction. No abnormal mass effect or midline shift is seen. [place] to white matter differentiation is well preserved. No extra-axial fluid collections are identified. The ventricles are normal in size. There is mild generalized sulcal widening. There is mild patchy low attenuation in the periventricular white matter spaces. The osseous structures and soft tissues are normal. Anterior dermal calcifications are incidentally noted, which can be correlated clinically. The mastoid air cells and visualized portions of the paranasal sinuses are well aerated. IMPRESSION: 1. No acute intracranial pathology. 2. There is mild cortical atrophy, commensurate with advanced age. 3. There is mild patchy low attenuation change in the periventricular white matter spaces, commonly associated with chronic microangiopathy. Real-time imaging of the kidneys and bladder. FINDINGS: RIGHT KIDNEY: 10.9 x 5.7 x 6.0 cm (SAG x AP x TRV). The kidney is normal in size, contour, and echogenicity. Renal cortical thickness is normal. No calculi are seen. There is an upper pole cyst measuring 4.3 x 4.3 x 4.2 cm. There is a mid renal cyst measuring 2.2 x 2.1 x 1.8 cm with a thin septation. No hydronephrosis. LEFT KIDNEY: 11.7 x 6.1 x 4.2 cm (SAG x AP x TRV). The kidney is normal in size, contour, and echogenicity. Renal cortical thickness is normal. No calculi are seen. There is a cyst in the upper pole measuring 2.9 x 2.7 x 2.6 cm. No hydronephrosis. BLADDER: No focal wall thickening is seen. Post void residual bladder volume measures 532 mL. Bilateral ureteral jets are demonstrated. Prostate measures approximately 4.5 x 3.4 x 4.0 cm, for a volume of 32 mL. IMPRESSION: 1. No hydronephrosis bilaterally. 2. Few bilateral renal cysts. 3. Postvoid residual bladder volume of 532 mL. 4. Estimated prostate volume of 32 mL. Pertinent Lab Results: Cr 1.4 at admission UA is positive at admission Disposition Summary Disposition Principal Diagnosis: Acute complicated cystitis Additional Diagnosis: BPH HTN HLD Discharge Disposition: home or self care Discharge Instructions General Discharge Information Code Status: Full Code Patient's Diet: Regular diet Patient's Activity: activity as tolerated Follow-Up Instructions/Appts: Please follow up with your PCP in aweek Please follow up with your Supervisor [facility] in a week Please follow up with your urologist - in a week Medications at Discharge Discharge Medications: Stop taking the following medications: Ciprofloxacin HCl (Ciprofloxacin HCl) 500 MG TABLET ORAL TWICE DAILY Qty = 14 Continue taking these medications: Atorvastatin Calcium (Atorvastatin Calcium) 80 MG TABLET 1 Tablet ORAL DAILY Qty = 90 Comments: Last Taken: 11/28/16 Time: 09:30 AM Sertraline HCl (Sertraline HCl) 50 MG TABLET 1 Tablet ORAL DAILY Qty = 90 Comments: Last Taken: 11/28/16 Time: 09:30 AM Metoprolol Tartrate (Metoprolol Tartrate) 25 MG TABLET 1 Tablet ORAL TWICE DAILY Qty = 270 Comments: Last Taken: 11/28/16 Time: 09:30 AM Quinapril HCl (Quinapril HCl) 10 MG TABLET 1 Tablet ORAL DAILY Qty = 90 Comments: NOT GIVEN IN HOSPITAL Ezetimibe (Zetia) 10 MG TABLET 1 Tablet ORAL DAILY Qty = 10 Comments: Last Taken: 11/28/16 Time: 09:30 AM Amlodipine Besylate (Amlodipine Besylate) 10 MG TABLET 1 Tablet ORAL DAILY Qty = 90 Comments: Last Taken: 11/28/16 Time: 09:30 AM Esomeprazole Magnesium (Nexium) 20 MG CAPSULE.DR 1 Capsule ORAL DAILY Comments: PRILOSEC GIVEN IN HOSPITAL Last Taken: 11/28/16 Time: 06:30 AM Start taking the following new medications: Tamsulosin HCl (Flomax) 0.4 MG CAP.ER.24H 1 Capsule ORAL DAILY Qty = 30 No Refills Comments: Last Taken: 11/28/16 Time: 09:30 AM Cephalexin (Keflex) 500 MG CAPSULE 1 Capsule ORAL Q6H Qty = 8 No Refills Comments: NOT GIVEN IN HOSPITAL Copies To: TYRELL LOPEZ,BERT Becerra; VARGAS LOPEZ,SADE Villagran Attending MD Review Statement Documenting Attending: NOBLE LOPEZ,KENYETTA
== END 2016-11-28 12:15 | DRG 690 ==
LOC: ENRESERVTM → ENRESERVDT → ERH 11:57 → ERHI 15:29 → ENPENDDIS 15:29 → 2NB 15:29
PROVIDERS: Physician Assistant Medical; ADMIT Hospitalist
DX: N39.0 Urinary tract infection, site not specified (principal); N17.9 Acute kidney failure, unspecified; Z95.1 Presence of aortocoronary bypass graft; E86.0 Dehydration; R26.81 Unsteadiness on feet; I10 Essential (primary) hypertension; E78.5 Hyperlipidemia, unspecified; K21.9 Gastro-esophageal reflux disease without esophagitis; Z85.828 Personal history of other malignant neoplasm of skin; Z87.891 Personal history of nicotine dependence; N40.1 Benign prostatic hyperplasia with lower urinary tract symptoms; R33.8 Other retention of urine; Z86.59 Personal history of other mental and behavioral disorders
CPT/HCPCS: 2NBP; 2NBSP; 76775; 81001; 82436; 87040; 87086; 93005; 93010; 96360; 97116-GO; 97161-GP; 97530-GO; J0696; J1644